=== PATIENT | male | born 1970 | race Caucasian/White ===

== ENCOUNTER 2017-03-08 20:00 | Emergency (ER) | payer OTHER ==
[2017-03-08 20:15] VITALS: RESP 18
[2017-03-08] MEDS ORDERED: DIPH,PERTUS(ACELL)TETVAC-LF 0.5 ML VIAL IM ONE (20:35)
--- NOTE | 2017-03-08 20:37 | ED ---
Wound/Laceration HPI - General Chief Complaint: Wound/Laceration Stated Complaint: hand lac Time Seen by Provider: 03/08/17 20:21 Source: patient, RN notes reviewed Mode of arrival: ambulatory Limitations: no limitations - History of Present Illness Initial Comments: 47-year-old male presents emergency Department with chief complaint of laceration to his left hand. Patient was using an X-[employer]o knife to cut and states he slipped cutting just proximal to his left thumb. He states that he's up-to-date on his tetanus though he does not believe it's within last 5 years. Denies any numbness or tingling no paresthesias, no decreased movement. - Related Data Home Medications Medication Instructions Recorded Confirmed Omeprazole [PriLOSEC] 20 mg PO [id number] 06/17/13 03/08/17 Sertraline [Zoloft] 100 mg PO DAILY 06/17/13 03/08/17 Fexofenadine/Pseudoephedrine 1 each PO 03/08/17 [Mony-D 24 Hour Tablet] Ipratropium [place] [Atrovent Hfa] 2 puff INHALATION QID 03/08/17 03/08/17 Ipratropium/Albuterol Sulfate 1 puff INHALATION QID 03/08/17 03/08/17 [Combivent Respimat Inhaler] buPROPion XL [Wellbutrin Xl] 150 mg PO DAILY 03/08/17 03/08/17 Allergies Allergy/AdvReac Type Severity Reaction Status Date / Time No Known Allergies Allergy Verified 06/17/13 16:44 Review of Systems ROS Statement: Those systems with pertinent positive or pertinent negative responses have been documented in the HPI. ROS Other: All systems not noted in ROS Statement are negative. 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 Absent: respiratory distress, wheezes, rales, rhonchi, stridor Cardiovascular Exam: Present: regular rate, normal rhythm, normal heart sounds. Absent: systolic murmur, diastolic murmur, rubs, gallop, clicks Extremities exam: Present: other (Left hand just proximal to the thumb there is a trace centimeter laceration which is primarily superficial though there is some partial-thickness patient has full range of motion there is no tendon involvement neurovascular intact) Course Vital Signs 03/08/17 20:12 Temperature 98.5 F Pulse Rate 97 Respiratory 18 Rate Blood Pressure 142/84 O2 Sat by Pulse 96 Oximetry Procedures - Laceration Laceration #1 Indication: laceration Site: hand (Left thumb) Size (cm): 3 Description: linear Depth: simple, single layer Sedation/Analgesia: none Anesthetic Used: lidocaine 1%, without epi Anesthesia Technique: local infiltration Amount (mls): 3 Pre-repair: irrigated extensively Type of Sutures: nylon Size of Sutures: 4-0 Number of Sutures: 4 Technique: simple, interrupted Patient Tolerated Procedure: well, no complications Medical Decision Making - Medical Decision Making 47-year-old male presented for to emergency department for left hand laceration. This was repaired using sutures. It was thoroughly cleaned prior. Patient will follow-up in 7 days have sutures removed. Disposition Clinical Impression: Laceration of left hand Disposition: HOME SELF-CARE Condition: Stable Instructions: Care For Your Stitches (ED), Laceration (ED) Additional Instructions: Have sutures removed in 7 days. Please return to the Emergency Department if symptoms worsen or any other concerns. Referrals: Keenan Howard DO [Primary Care Provider] - 1-2 days Time of Disposition: 20:37
[2017-03-08 21:34] VITALS: BP 132/87; PULSE 87; TEMP 98.4
== END 2017-03-08 21:10 | disposition home or self-care (01) ==
LOC: EC 20:00
DX: S61.412A Laceration without foreign body of left hand, initial encounter (principal); J44.9 Chronic obstructive pulmonary disease, unspecified; F43.10 Post-traumatic stress disorder, unspecified; Z87.891 Personal history of nicotine dependence; Z79.899 Other long term (current) drug therapy; Z23 Encounter for immunization; W26.0XXA Contact with knife, initial encounter
CPT/HCPCS: 12002; 90471; 90715; 99282

== ENCOUNTER 2022-01-31 17:08 | Emergency (ER) | payer OTHER ==
[2022-01-31 17:31] VITALS: TEMP 98
[2022-01-31] MEDS ORDERED: KETOROLAC 15 MG/ML 1 ML VIAL IM STA (19:06)
[2022-01-31] MEDS ORDERED: methocarbamoL 750 MG TAB PO STA (19:09)
[2022-01-31] MEDS ORDERED: LIDOCAINE 5% PATCH TOPICAL SCH (19:30)
--- NOTE | 2022-01-31 20:03 | XR ---
EXAMINATION TYPE: XR ribs RT w pa chest xray DATE OF EXAM: 01/31/2022 7:25 PM INDICATION: Patient age:Male; 51 years old; Reason for study: Right anterior chest wall pain; COMPARISON: None TECHNIQUE: Frontal and oblique views of the right ribs with frontal chest radiograph. FINDINGS: The ribs have a normal appearance. No evidence of fracture. Overall, the lungs are clear. The cardiac silhouette is normal in size. The remaining osseous structures are intact. Fixation to the lower cervical spine. IMPRESSION: No acute osseous pathology.
--- NOTE | 2022-01-31 20:22 | ED ---
General Adult HPI - General Chief complaint: Upper Respiratory Infection Stated complaint: rt side rib pain Time Seen by Provider: 01/31/22 18:31 Source: patient Mode of arrival: ambulatory Limitations: no limitations - History of Present Illness Initial comments: This is a 51-year-old male who presents emergency department for right-sided chest wall pain. The patient stated that he has had this pain starting today after he had a multiple episodes of cough in which she stated that he felt a pop in the right anterior chest wall. The patient had pain with deep breathing as well as any cough or movement. The patient wanted make sure he did not have any acute fractures of the ribs. The patient denied any shortness of breath however and denied any other acute pain while sitting still. The patient denied any other acute pain at this time. - Related Data Home Medications Medication Instructions Recorded Confirmed Omeprazole [PriLOSEC] 20 mg PO HS 06/17/13 03/18/21 Sertraline [Zoloft] 100 mg PO HS 06/17/13 03/18/21 Ipratropium [place] [Atrovent Hfa] 2 puff INHALATION RT-BID 03/08/17 03/18/21 Ipratropium/Albuterol Sulfate 1 puff INHALATION RT-QID PRN 03/08/17 03/18/21 [Combivent Respimat Inhaler] Albuterol Inhaler [Ventolin Hfa 2 puff INHALATION RT-QID PRN 03/18/21 03/18/21 Inhaler] Atorvastatin [Lipitor] 40 mg PO DAILY 03/18/21 03/18/21 Fluticasone Nasal [place] [Flonase 1 spray EA NOSTRIL BID 03/18/21 03/18/21 Nasal [place]] Loratadine [Claritin] 10 mg PO HS 03/18/21 03/18/21 Thc/Cbd Gummy 10mg 10 mg PO HS 03/18/21 03/18/21 buPROPion [Wellbutrin] 75 mg PO DAILY 03/18/21 03/18/21 lisinopriL [Zestril] 10 mg PO HS 03/18/21 03/18/21 metFORMIN HCL 500 mg PO BID 03/18/21 03/18/21 Previous Rx's Medication Instructions Recorded Ketorolac [Toradol] 10 mg PO Q6HR #12 tab 03/18/21 Lidocaine 5% Patch [Lidoderm] 1 patch TOPICAL DAILY #14 patch 01/31/22 Naproxen [Naprosyn] 500 mg PO BID #30 tab 01/31/22 methocarbamoL [Robaxin-750] 750 mg PO TID #52 tab 01/31/22 Allergies Allergy/AdvReac Type Severity Reaction Status Date / Time No Known Allergies Allergy Verified 03/18/21 16:50 Review of Systems ROS Statement: Those systems with pertinent positive or pertinent negative responses have been documented in the HPI. ROS Other: All systems not noted in ROS Statement are negative. 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 History of Any Multi-Drug Resistant Organisms: None Reported Past Surgical History: Orthopedic Surgery Additional Past Surgical History / Comment(s): Cervical fusion Past Anesthesia/Blood Transfusion Reactions: No Reported Reaction Past Psychological History: Depression, PTSD Smoking Status: Never smoker Past Alcohol Use History: Occasional Past Drug Use History: Marijuana General Exam Limitations: no limitations General appearance: alert, in no apparent distress Head exam: Present: atraumatic, normocephalic Eye exam: Present: normal appearance, PERRL Pupils: Present: normal accommodation ENT exam: Present: normal exam, normal oropharynx, mucous membranes moist Neck exam: Present: normal inspection, full ROM Respiratory exam: Present: normal lung sounds bilaterally, other (Tenderness of patient to the anterior chest wall, midclavicular line) Cardiovascular Exam: Present: regular rate, normal rhythm, normal heart sounds GI/Abdominal exam: Present: soft, normal bowel sounds Extremities exam: Present: normal inspection, full ROM, normal capillary refill Back exam: Present: normal inspection, full ROM Neurological exam: Present: alert, oriented X3, CN II-XII intact Psychiatric exam: Present: normal affect, normal mood Skin exam: Present: warm, dry Course Vital Signs 01/31/22 01/31/22 01/31/22 17:28 18:02 19:00 Temperature 98.0 F Pulse Rate 98 99 98 Respiratory 20 20 18 Rate Blood Pressure 132/73 140/88 133/54 O2 Sat by Pulse 95 97 96 Oximetry 01/31/22 20:30 Temperature Pulse Rate 94 Respiratory 20 Rate Blood Pressure 110/64 O2 Sat by Pulse 95 Oximetry Medical Decision Making - Medical Decision Making The patient was seen and evaluated emergency department. Physical exam, the patient was resting in bed without any acute distress. Vital signs admission were stable and within normal limits. Due to the nature the patient's complaints, a chest x-ray was obtained. The patient was given lidocaine, Robaxin as well as Toradol. On reevaluation, the patient had improvement of his symptoms. He did still have reproducibility of pain on palpation of the anterior chest wall likely secondary to a muscle strain. Chest x-ray was obtained and was interpreted by myself showing no acute fractures or any intrathoracic pathology. The patient was given a prescription for lidocaine, naproxen and Robaxin to be taken at home. The patient was advised to take his medications as prescribed and to follow back in the emergency department if his symptoms became acutely worse. The patient was agreeable to this and all his questions were answered. The patient was discharged home in stable condition with his . Disposition Clinical Impression: Rib contusion Disposition: HOME SELF-CARE Condition: Stable Instructions (If sedation given, give patient instructions): Rib Contusion (ED) Prescriptions: Lidocaine 5% Patch [Lidoderm] 1 patch TOPICAL DAILY #14 patch Naproxen [Naprosyn] 500 mg PO BID #30 tab methocarbamoL [Robaxin-750] 750 mg PO TID #52 tab Is patient prescribed a controlled substance at d/c from ED?: No Referrals: [facility],Clinic [Primary Care Provider] - 1-2 days Time of Disposition: 20:20
[2022-01-31 20:32] VITALS: BP 110/64; PULSE 94; RESP 20
== END 2022-01-31 20:39 | disposition home or self-care (01) ==
LOC: EC 17:08
DX: S20.211A Contusion of right front wall of thorax, initial encounter (principal); J44.9 Chronic obstructive pulmonary disease, unspecified; E11.9 Type 2 diabetes mellitus without complications; F32.A Depression, unspecified; F12.90 Cannabis use, unspecified, uncomplicated; Z79.899 Other long term (current) drug therapy; X58.XXXA Exposure to other specified factors, initial encounter
CPT/HCPCS: 71101; 99284; 96372; J1885

== ENCOUNTER 2022-06-05 19:32 | Emergency (ER) | payer OTHER ==
[2022-06-05 19:53] VITALS: RESP 20; TEMP 97.7
[2022-06-05] MEDS ORDERED: DIPH,PERTUS(ACELL)TETVAC-LF 0.5 ML VIAL IM ONE (20:00)
[2022-06-05] MEDS ORDERED: KETOROLAC 15 MG/ML 1 ML VIAL IM STA (20:00)
[2022-06-05] MEDS ORDERED: TRANEXAMIC ACID 2,000 MG in SODIUM CHLORIDE 0.9% 100 ML IRRIGATION ONE (20:00)
--- NOTE | 2022-06-05 20:02 | ED ---
General Adult HPI - General Chief complaint: Wound/Laceration Stated complaint: R HAND LACERATION Time Seen by Provider: 06/05/22 19:53 Source: patient, RN notes reviewed Mode of arrival: ambulatory Limitations: no limitations - History of Present Illness Initial comments: 49-year-old female with no significant past medical history presents the emergency department the chief complaint of a laceration. Patient reports that he cut his left second and third digits with a box spinner knife. Patient reports that happened one half hour prior to arrival. He is not up-to-date on his latest tetanus vaccination. He denies any numbness, tingling, weakness in the extremity. Denies any anticoagulant use. - Related Data Home Medications Medication Instructions Recorded Confirmed Omeprazole [PriLOSEC] 20 mg PO HS 06/17/13 03/18/21 Sertraline [Zoloft] 100 mg PO HS 06/17/13 03/18/21 Ipratropium [place] [Atrovent Hfa] 2 puff INHALATION RT-BID 03/08/17 03/18/21 Ipratropium/Albuterol Sulfate 1 puff INHALATION RT-QID PRN 03/08/17 03/18/21 [Combivent Respimat Inhaler] Albuterol Inhaler [Ventolin Hfa 2 puff INHALATION RT-QID PRN 03/18/21 03/18/21 Inhaler] Atorvastatin [Lipitor] 40 mg PO DAILY 03/18/21 03/18/21 Fluticasone Nasal [place] [Flonase 1 spray EA NOSTRIL BID 03/18/21 03/18/21 Nasal [place]] Loratadine [Claritin] 10 mg PO HS 03/18/21 03/18/21 Thc/Cbd Gummy 10mg 10 mg PO HS 03/18/21 03/18/21 buPROPion [Wellbutrin] 75 mg PO DAILY 03/18/21 03/18/21 lisinopriL [Zestril] 10 mg PO HS 03/18/21 03/18/21 metFORMIN HCL 500 mg PO BID 03/18/21 03/18/21 Previous Rx's Medication Instructions Recorded Ketorolac [Toradol] 10 mg PO Q6HR #12 tab 03/18/21 Lidocaine 5% Patch [Lidoderm] 1 patch TOPICAL DAILY #14 patch 01/31/22 Naproxen [Naprosyn] 500 mg PO BID #30 tab 01/31/22 methocarbamoL [Robaxin-750] 750 mg PO TID #52 tab 01/31/22 Allergies Allergy/AdvReac Type Severity Reaction Status Date / Time No Known Allergies Allergy Verified 03/18/21 16:50 Review of Systems ROS Statement: Those systems with pertinent positive or pertinent negative responses have been documented in the HPI. ROS Other: All systems not noted in ROS Statement are negative. 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 Absent: scleral icterus, conjunctival injection, periorbital swelling ENT exam: Present: normal exam, mucous membranes moist Neck exam: Present: normal inspection. Absent: tenderness, meningismus, lymphadenopathy Respiratory exam: Present: normal lung sounds bilaterally. Absent: respiratory distress, wheezes, rales, rhonchi, stridor Cardiovascular Exam: Present: regular rate, normal rhythm, normal heart sounds. Absent: systolic murmur, diastolic murmur, rubs, gallop, clicks GI/Abdominal exam: Present: soft, normal bowel sounds. Absent: distended, tenderness, guarding, rebound, rigid Extremities exam: Present: normal inspection, full ROM, normal capillary refill. Absent: tenderness, pedal edema, joint swelling, calf tenderness Left Hand L/R Front: 1 - laceration (Superficial laceration to second digit with bleeding controlled) 2 - laceration (1 cm superficial laceration to third digit with bleeding control for range of motion distal NVI) Back exam: Present: normal inspection Neurological exam: Present: alert, oriented X3, CN II-XII intact Psychiatric exam: Present: normal affect, normal mood Skin exam: Present: warm, dry, intact, normal color. Absent: rash Course Vital Signs 06/05/22 06/05/22 19:50 21:48 Temperature 97.7 F Pulse Rate 109 H 78 Respiratory 20 20 Rate Blood Pressure 107/75 135/75 O2 Sat by Pulse 97 98 Oximetry Medical Decision Making - Medical Decision Making Was pt. sent in by a medical professional or institution (, JUAN F, W[employer]AT[employer] OPERATOR, urgent care, hospital, or senior living...) When possible be specific @ -[No] Did you speak to anyone other than the patient for history (EMS, parent, family, police, friend...)? What history was obtained from this source @ -[No] Did you review nursing and triage notes (agree or disagree)? Why? @ -[I reviewed and agree with nursing and triage notes] Were old charts reviewed (outside hosp., previous admission, EMS record, old EKG, old radiological studies, urgent care reports/EKG's, senior living records)? Report findings @ -[No old charts were reviewed] Differential Diagnosis (chest pain, altered mental status, abdominal pain women, abdominal pain men, vaginal bleeding, weakness, fever, dyspnea, syncope, headache, dizziness, GI bleed, back pain, seizure, CVA, palpatations, mental health, musculoskeletal)? @ -[not applicable] EKG interpreted by me (3pts min.). @ -[As above] X-rays interpreted by me (1pt min.). @ -[None done] CT interpreted by me (1pt min.). @ -[None done] U/S interpreted by me (1pt. min.). @ -[None done] What testing was considered but not performed or refused? (CT, X-rays, U/S, labs)? Why? @ -[None] What meds were considered but not given or refused? Why? @ -[None] Did you discuss the management of the patient with other professionals (professionals i.e. JUAN F Steele, [employer] OPERATOR, lab, RT, psych nurse, social service agency director, nougat cutter machine, teacher, staff air tactical officer, disease case manager)? Give summary @ -[No] Was smoking cessation discussed for >3mins.? @ -[No] Was critical care preformed (if so, how long)? @ -[No] Were there social determinants of health that impacted care today? How? (Homelessness, low income, unemployed, alcoholism, drug addiction, transportation, low edu. Level, literacy, decrease access to med. care, longterm, rehab)? @ -[No] Was there de-escalation of care discussed even if they declined (Discuss DNR or withdrawal of care, Hospice)? DNR status @ -[No] What co-morbidities impacted this encounter? (DM, HTN, Smoking, COPD, CAD, Cancer, CVA, ARF, Chemo, Hep., AIDS, mental health diagnosis, sleep apnea, morbid obesity)? @ -[None] Was patient admitted / discharged? Hospital course, mention meds given and route, prescriptions, significant lab abnormalities, going to OR and other pertinent info. @ --Discharged. This is a 52-year-old female who presents to the emergency department with finger laceration. Patient had a thorough physical ex am and history obtained on the ED. Physical exam is essentially unremarkable heart rate regular rate and rhythm, lungs clear to auscultation bilaterally abdomen is soft and nontender vital signs are stable. Superficial lacerations to his second and third digits with bleeding controlled. Patient had lacerations thoroughly irrigated and explored. He should was given tetanus vaccination. Patient had lab work and imaging which were essentially unremarkable. I discussed the results in detail with the patient verbalized understanding and all questions were addressed. Return precautions were d iscussed at length. Patient discharged in stable condition. Case discussed with AMBROCIO Haro who agrees with plan of care Undiagnosed new problem with uncertain prognosis? @ -[No] Drug Therapy requiring intensive monitoring for toxicity (Heparin, Nitro, Insulin, Cardizem)? @ -[No] Were any procedures done? @ -[No] Diagnosis/symptom? @ - finger laceration Acute, or Chronic, or Acute on Chronic? @ -acute Uncomplicated (without systemic symptoms) or Complicated (systemic symptoms)? @ -uncomplicated Side effects of treatment? @ -[No] Exacerbation, Progression, or Severe Exacerbation? @ -[No] Poses a threat to life or bodily function? How? (Chest pain, [place], NH, pneumonia, PE, COPD, DKA, ARF, appy, cholecystitis, CVA, Diverticulitis, Homicidal, Suicidal, threat to staff... and all critical care pts) @ -low likelihood Disposition Clinical Impression: Laceration Disposition: HOME SELF-CARE Condition: Stable Instructions (If sedation given, give patient instructions): Laceration (DC) Additional Instructions: Return to the nearest emergency department symptoms worsen or persist Is patient prescribed a controlled substance at d/c from ED?: No Referrals: [facility],Clinic [Primary Care Provider] - 1-2 days Time of Disposition: 21:37
[2022-06-05] MEDS ORDERED: LIDOCAINE 1% INJ 10MG/ML (30 ML VIAL-PF) SQ ONE (20:55)
[2022-06-05 21:49] VITALS: BP 135/75; PULSE 78
== END 2022-06-05 21:49 | disposition home or self-care (01) ==
LOC: EC 19:32
DX: S61.210A Laceration without foreign body of right index finger without damage to nail, initial encounter (principal); S61.212A Laceration without foreign body of right middle finger without damage to nail, initial encounter; J44.9 Chronic obstructive pulmonary disease, unspecified; E11.9 Type 2 diabetes mellitus without complications; F32.A Depression, unspecified; F12.90 Cannabis use, unspecified, uncomplicated; Z79.84 Long term (current) use of oral hypoglycemic drugs; Z79.51 Long term (current) use of inhaled steroids; Z79.899 Other long term (current) drug therapy; Z23 Encounter for immunization; W26.0XXA Contact with knife, initial encounter
CPT/HCPCS: 99283 ×2; 96372 ×2; 90471 ×2; 90715; J2001; J1885